=== PATIENT | female | born 1960 | race Caucasian/White ===

== ENCOUNTER → 2017-05-29 | Outpatient (CLI) | payer BC ==
[2017-05-29 13:18] LABS: BASO % 0.5 %; BASO ABS # 0.03 K/uL (0-0.2); COMPLETE YES; HEMATOCRIT 42.9 % (37-47); IG% 0.2 %; LYMPH % 34.7 %; LYMPH ABS # 2.07 K/uL (1.2-3.4); MEAN CELL VOLUME 94.3 fL (80-100); MEAN CORPUSCULAR HEMOGLOBIN 30.5 pg (25-34); MEAN CORPUSCULAR HGB CONC 32.4 g/dl (32-36); MEAN PLATELET VOLUME 9.1 fL (7.4-10.4); MONO % 8.2 %; NEUT % 51.4 %; PLATELET COUNT 274 K/uL (130-400); RED BLOOD COUNT 4.55 M/uL (4.2-5.4); WHITE BLOOD COUNT 5.97 K/uL (4.8-10.8)
[2017-05-29 13:45] LABS: BLOOD UREA NITROGEN 12 mg/dl (7-18); CALCIUM 9.2 mg/dl (8.5-10.1); CARBON DIOXIDE 29 mmol/L (21-32); CHLORIDE 108 mmol/L (98-107); CREATININE 0.72 mg/dl (0.60-1.20); GLUCOSE 96 mg/dl (70-99); GLUCOSE,FASTING 96 mg/dl (70-99); MAGNESIUM 2.5 mg/dl (1.8-2.4); POTASSIUM 4.6 mmol/L (3.5-5.1); SODIUM 140 mmol/L (136-145)
[2017-05-29 13:56] LABS: CHOLESTEROL 268 mg/dl (0-200); HDL CHOLESTEROL 90 mg/dl; LDL CHOLESTEROL CALCULATED 159 mg/dl; TRIGLYCERIDES 95 mg/dl (0-150); VERY LOW DENSITY LIPOPROT CALC 19 mg/dl
== END | disposition home or self-care (01) ==
LOC: C.LABMFLN 08:51
PROVIDERS: ATTEND Family Medicine
DX: E78.01 Familial hypercholesterolemia (principal); E55.9 Vitamin D deficiency, unspecified; R00.2 Palpitations

== ENCOUNTER → 2017-10-02 | Outpatient (CLI) | payer BC ==
--- NOTE | 2017-10-02 14:43 | DIAGNOSTIC IMAGING REPORT ---
MRI THE LEFT HINDFOOT NO CONTRAST CLINICAL HISTORY: LEFT FOOT MASS COMPARISON STUDY: No previous studies for comparison. FINDINGS: Imaging was performed in sagittal, coronal, and axial planes. There are no areas of marrow edema to indicate occult fracture or bone bruise. There is edema within the pre-Achilles fat pad. The major ligamentous structures appear intact. Within the lateral superficial plantar soft tissues, at the mid calcaneal level, there is a circumscribed mass measuring 25 x 14 x 19 mm. This is of intermediate signal on T1-weighted images, and of increased signal on T2-weighted images. The lesion contains multiple signal voids. This lesion likely represents a vascular lesion with phleboliths such as a hemangioma. IMPRESSION: 1. 25 x 14 x 19 mm circumscribed superficial soft tissue mass within the lateral plantar soft tissues at the mid calcaneal level. Signal characteristics favor a vascular lesion with phleboliths such as a hemangioma. 2. Edema within Kager's fat pad. 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 Electronically signed by: Ellis Tripp M.D. 10/02/2017 2:42 PM Dictated Date/Time: 10/02/2017 2:27 PM
== END | disposition home or self-care (01) ==
LOC: C.MRI 13:36
PROVIDERS: ATTEND Podiatrist Foot & Ankle Surgery
DX: D21.22 Benign neoplasm of connective and other soft tissue of left lower limb, including hip (principal)